=== PATIENT | male | born 1965 | race Caucasian/White ===

== ENCOUNTER 2017-10-24 08:58 | Day surgery (SDC) | payer BC ==
[~2017-10-24 08:58] MED LIST: ACETAMINOPHEN 1,000 MG/100 ML BTL IV ONE; CLINDAMYCIN PHOS/D5W 900MG 900 MG/50 ML BAG IVPB ONE
[2017-10-24] MEDS ORDERED: ROCURONIUM BROMIDE 50MG/5ML VIAL IV ONE (08:59)
[2017-10-24] MEDS ORDERED: SEVOFLURANE 250 ML INH ONE (08:59)
[2017-10-24] MEDS ORDERED: BUPIVACAINE 0.75% W/EPI MPF 30ML VIAL IVP ONE (08:59)
[2017-10-24] MEDS ORDERED: EPINEPHRINE 1 MG/ML AMPUL SQ ONE (08:59)
[2017-10-24] MEDS ORDERED: HYDROMORPHONE HCL 2 MG/ML VIAL IV ONE ×2 (08:59)
[2017-10-24] MEDS ORDERED: NEOSTIGMINE 1 MG/1 ML,10ML VIAL IV ONE (08:59)
[2017-10-24] MEDS ORDERED: LIDOCAINE 2% MDV (20MG/ML) 20ML VIAL IV ONE (08:59)
[2017-10-24] MEDS ORDERED: PROPOFOL 10 MG/ML VIAL IV ONE (08:59)
[2017-10-24] MEDS ORDERED: FENTANYL PF 100MCG/2ML VIAL IV ONE (08:59)
[2017-10-24] MEDS ORDERED: ROPIVACAINE HCL (NAROPIN) /PF 5MG/ML 20ML VIAL IV ONE ×2 (08:59)
[2017-10-24] MEDS ORDERED: METHYLPREDNISOLONE 40MG/VIAL IM ONE (08:59)
[2017-10-24] MEDS ORDERED: DEXAMETHASONE 4 MG/ML 1ML VIAL IVP ONE (08:59)
[2017-10-24] MEDS ORDERED: SUCCINYLCHOLINE 20 MG/ML 10ML IVP ONE (08:59)
[2017-10-24] MEDS ORDERED: MORPHINE SULFATE PF 10MG/10ML VIAL IV ONE (08:59)
[2017-10-24] MEDS ORDERED: KETOROLAC 30 MG/ML VIAL IVP ONE (08:59)
[2017-10-24] MEDS ORDERED: MIDAZOLAM HCL 2MG/2ML VIAL IV ONE (08:59)
[2017-10-24] MEDS ORDERED: GLYCOPYRROLATE 0.2 MG/ML ML IV ONE (08:59)
--- NOTE | 2017-10-24 20:37 | Operative Note ---
DATE: 10/24/17. PREOPERATIVE DIAGNOSIS: SEVERE IMPINGEMENT RIGHT SHOULDER. QUESTION TEAR OF THE ROTATOR CUFF. POSTOPERATIVE DIAGNOSES: 1. 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 2. COMPLEX GLENOHUMERAL LABRAL TEAR SUPERIORLY. 3. SEVERE EXTERNAL IMPINGEMENT RIGHT SHOULDER. 4. ADVANCED ARTHROSIS RIGHT DISTAL CLAVICLE. PROCEDURE: 1. RIGHT SHOULDER ARTHROSCOPY WITH INTERARTICULAR DEBRIDEMENT 2. RIGHT SHOULDER OPEN ACROMIOPLASTY, CA LIGAMENT RESECTION, SUBACROMIAL BURSECTOMY. 3. RIGHT SHOULDER DISTAL CLAVICLE RESECTION. STAFF SURGEON: HOENY CONWAY M.D. ANESTHESIA: GENERAL. PREPARATION: CHLORAPREP. INDIVIDUAL CONSIDERATIONS: NONE. PROCEDURE: The patient was taken to the Operating Room and placed supine on the operating table. He had a successful induction with general anesthetic. His right arm and shoulder were prepped and draped in the usual fashion. Examination under anesthesia showed no instability. The patient had a posterior portal identified for arthroscopy. The skin was infiltrated with 0.75% Marcaine with Epinephrine prior. An #18 gauge spinal needle was easily placed in the joint and the joint was inflated with normal saline. A stab wound was made and a blunt-tip trocar through the scope was easily placed inside the joint and the joint was inflated with normal saline. An anterior accessory portal was then made just inferior to the intact long head of the biceps tendon in a retrograde fashion with a Wissinger toro. The joint was irrigated out. He had grade 3 changes on the head, fraying of the labrum superiorly, the long head was intact , subscapularis tendon was normal, undersurface of the rotator cuff looked contused and reddened but otherwise intact. No significant synovitis was in the pouch. A shaver was introduced, the labrum was debrided and the head was smoothed off with the shaver. After irrigation, the portals were closed with eva. The patient had anterior portals to the subacromial space and distal clavicle. The skin was again infiltrated with 0.50% Marcaine with Epinephrine prior. Sharp dissection carried down through the skin and subcutaneous tissue. Small veins were coagulated with a Bovie. An anterior deltoid interval was developed. Care was taken not to split the deltoid more than about 4 cm distal to the anterior tip of the acromion to prevent injury to the axillary nerve. Once in the subacromial space, it was extremely tight. The deltoid was then taken subperiosteally off the anterior aspect of the acromion, over the top of the intact CA ligament, and off the anterior aspect of the highly degenerated distal clavicle. The CA ligament was resected with a Bovie. The distal clavicle was resected with an oscillating saw, taking about 7 or 8 mm. The patient had large spurs anteriorly of the acromion. There was almost no subacromial space anteriorly. An anterior acromioplasty was performed using an oscillating saw, taking 1 cm, most of this being downsloping spur and acromion tapering to wedge posteromedially to include the spurs at the AC joint. The undersurface was smoothed with a rasp. An extremely thickened bursa was debrided out. I now had a good look at the rotator cuff. It looked contused but it was otherwise intact with nothing to repair. After irrigation, the deltoid was reattached to the remaining acromion with multiple interrupted #2 Vicryl going directly through the bony acromion. Periosteal cuff of the distal clavicle was closed with a running #2 Vicryl. The anterior deltoid interval was closed with running #1 Vicryls. The subcutaneous was closed with 2-0 Plus Vicryl and the skin was closed with eva. 10 mL of 0.75% Marcaine with along with 10 mg of Morphine and 40 mg of DepoMedrol were injected into the subacromial space through a sterile #18 gauge needle and a sterile Bulkee compressive dressing and sling were applied. The patient tolerated the procedures well. Needle and sponge counts were correct, estimated blood loss was minimal, and he was taken back to Recovery in good condition. There were no complications. cc: Dr. Contreras Nogueira JOB NUMBER: [id number] MTDD
== END 2017-10-24 13:50 | disposition home or self-care (01) ==
LOC: SUR 08:58
PROVIDERS: ATTEND Orthopaedic Surgery
DX: M75.41 Impingement syndrome of right shoulder (principal)
CPT/HCPCS: 29822; 23120; 64415; 00450; J1885; J3010; J1170; J2795; J3490 ×2; J0171; J0330; J1030; J2710